=== PATIENT | female | born 1990 | race Two or more races ===

== ENCOUNTER 2020-03-14 17:20 | Emergency (ER) | payer SELFPAY ==
[2020-03-14 17:25] VITALS: BP 120/90; PULSE 86; RESP 19; TEMP 37.2; O2SAT 98; BMI 38.0
--- NOTE | 2020-03-14 17:42 | HMH.EDUTC ---
[facility] – [place] Disposition Clinical Impression: Viral syndrome Disposition: Home, Self-Care Condition on Discharge: Good Instructions: Preventing the Spread of Coronavirus Discharge Instructions Additional Instructions: You have been tested for COVID19. Please isolate yourself as if you are positive until test results received. Referrals: Oli Interiano MD [Primary Care Provider] - Time of Disposition: 17:44 Medical Decision Making - Sharif Inquiry Pt receiving controlled substance: No Vital Signs: 03/14/20 17:25 Temperature 98.9 F Temperature Source Oral Pulse Rate [Right Brachial] 86 Respiratory Rate 19 Blood Pressure [Right Arm] 120/90 Blood Pressure Mean [Right Arm] 100 Blood Pressure Source [Right Arm] Automatic Cuff Blood Pressure Position [Right Arm] Sitting 02 Sat by Pulse Oximetry 98 Oxygen Delivery Method Room Air Orders (Tests/Meds): ORDERS Category Date Time Status Covid-19 Nasal PCR ([facility]) Routine Lab 03/14/20 17:28 Received [facility] [place] HPI - General Stated complaint: chills, headache,runny nose covid test Time Seen by Provider: 03/14/20 17:42 Mode of Arrival: Ambulatory Source of Information: Patient Limitations: No Limitations Description of Symptoms (Recalled from Triage Doc. by RN): PATIENT REQUESTING COVID TEST. C/O FEVER, CHILLS, HEADACHE, AND VOMITING X 2 DAYS HEENT Symptoms (Recalled from RN notes): Yes Resp Symptoms (Recalled from RN notes): No Skin Symptoms (Recalled from RN notes): No MS Symptoms (Recalled from RN notes): No Functional Status (Recalled from RN notes): WNL - History of Present Illness Provider Complaint: Chills, headache, runny nose, cough, vomiting X 2 days. On Keflex for tonsillitis. Unsure about fever as she has been taking Tylenol for pain. Has had cold chills, body aches. Has asthma - has been using inhaler as needed. Onset (ago): day(s) (2) Location: head, abdomen Relieving factors: none Exacerbating factors: none Associated symptoms: denies other symptoms Treatments prior to arrival: none - Related Data Allergies Allergy/AdvReac Type Severity Reaction Status Date / Time No Known Allergies Allergy Verified 03/14/20 17:41 - Worker's Comp Is this a Worker's Comp case?: No [facility] History - Hepatitis A Screen Drug use history?: No High risk sexual behaviors?: No History of sexually transmitted infection?: No Currently employed?: No Childcare worker?: No Do you have indoor plumbing?: Yes Do you have electricity?: Yes Attestation statement:: This patient has been screened for Hepatitis A risk factors. I have reviewed the patient's past medical history: Yes - Social History Alcohol Intake: never Occupational Status: other ROS Obtained: Yes All systems reviewed & no additional complaints - Constitutional Constitutional: Reports body ache, Reports chills, Reports headache(s), Reports malaise - ENT Ears, Nose, Mouth, and Throat: Reports sore throat - Respiratory Respiratory: Reports cough Physical Exam - General General appearance: alert, in no apparent distress - Head Head exam: atraumatic, normocephalic, normal inspection - Eye Eye exam: Present: normal appearance, PERRL, EOMI - ENT ENT exam: Present: normal exam, normal oropharynx, mucous membranes moist, TM's normal bilaterally, normal external ear exam - Neck Neck exam: Present: normal inspection, full ROM, trachea midline. Absent: meningismus, lymphadenopathy - Chest Chest inspection: Present: normal inspection, symmetric chest wall rise. Absent: tenderness - Respiratory Respiratory exam: Present: normal lung sounds bilaterally. Absent: respiratory distress - Cardiovascular Cardiovascular exam: Present: regular rate, normal rhythm. Absent: JVD - Abdominal Exam Abdominal exam: Present: soft, normal bowel sounds. Absent: distention, tenderness, guarding - Extremities Exam Extremities exam: Present: normal inspection, full ROM, normal capillary refil
[2020-03-14 17:43] VITALS: BP 120/90; PULSE 86; RESP 19; TEMP 37.2; O2SAT 98
[2020-03-14 19:15] LABS: UTC Influenza A Antigen Negative (Negative)
[2020-03-14 19:16] LABS: UTC Influenza B Antigen Negative (Negative)
--- NOTE | 2020-03-15 15:02 | PC.NURSE ---
PT NOTIFIED OF POSITIVE COVID RESULT
== END 2020-03-14 17:45 | disposition home or self-care (01) ==
PROVIDERS: Emergency Provider Physician Assistant; PCP Emergency Medicine
DX: U07.1 COVID-19 (principal); B34.9 Viral infection, unspecified
CPT/HCPCS: 87804; 99202; G0463; U0003